=== PATIENT | female | born 1970 | race Caucasian/White ===

== ENCOUNTER 2023-06-12 19:36 | Emergency (ER) | payer MEDICAID ==
[~2023-06-12] VITALS: Ht 157.5 cm; Wt 67.0 kg
[2023-06-12 19:52] VITALS: BP 115/72; RESP 18; TEMP 97.9; O2SAT 99
[2023-06-12 19:54] VITALS: PULSE 83
[2023-06-12] MEDS ORDERED: IBUPROFEN 600MG TABLET PO ONE (20:45)
[2023-06-12] MEDS ORDERED: IBUPROFEN 600MG TABLET PO NR (22:30)
[2023-06-12] MEDS ORDERED: IBUP-2029 MT (23:14)
== END 2023-06-12 23:57 | disposition home or self-care (01) ==
LOC: ER 19:53
DX: S09.90XA Unspecified injury of head, initial encounter (principal); M54.50 Low back pain, unspecified; M54.6 Pain in thoracic spine; V49.59XA Passenger injured in collision with other motor vehicles in traffic accident, initial encounter; Y93.89 Activity, other specified; Y92.89 Other specified places as the place of occurrence of the external cause; Y99.8 Other external cause status
CPT/HCPCS: 71101; 99283